=== PATIENT | female | born 1995 | race Caucasian/White ===

== ENCOUNTER 2016-03-23 23:14 | Emergency (ER) | payer MEDICAID ==
[2016-03-23] MEDS ORDERED: SODIUM CHLORIDE 0.9% 1,000 ML ONE (23:28)
[2016-03-23] MEDS ORDERED: ONDANSETRON 4 MG VIAL ONE (23:28)
[2016-03-23] MEDS ORDERED: DICYCLOMINE 20MG/2ML VIAL IM ONE (23:40)
[2016-03-24] MEDS ORDERED: SODIUM CHLORIDE 0.9% 50 ML IV ONE (00:51)
[2016-03-24] MEDS ORDERED: PROMETHAZINE 25 MG/ML VIAL ONE (00:51)
== END 2016-03-24 02:07 | disposition home or self-care (01) ==
LOC: ER 23:14
DX: A08.4 Viral intestinal infection, unspecified (principal)
CPT/HCPCS: 36415; 80053; 81001; 82947; 83690; 84703; 85025; 87088; 96361; 96372; 96374; 96375